=== PATIENT | male | born 1970 | race Caucasian/White ===

== ENCOUNTER 2019-05-26 02:43 | Emergency (ER) | payer OTHER ==
[2019-05-26] MEDS ORDERED: Labetalol 100 MG/20 ML MDV IVPUSH ONE (03:17)
--- NOTE | 2019-05-26 03:17 | EDM.PDOC ---
ED HPI GENERAL MEDICAL PROBLEM - General Chief Complaint: Neurological Problem Stated Complaint: [facility] Time Seen by Provider: 05/26/19 02:55 Source of Information: Reports: Patient, EMS History Limitations: Reports: No Limitations - History of Present Illness INITIAL COMMENTS - FREE TEXT/NARRATIVE: This is a 48-year-old male. He went to sleep at 8:30 PM this evening and apparently was normal as far as function of his extremities. He says he awoke around 2:30 or so and when he tried to get up to go to the bathroom his left leg was numb. He states he was not able to walk well because his left leg would not work he was also experiencing some sharp pain in his left hip. Got dizzy and then he apparently passed out. Apparently he awoke and called his son 's name and when the son came out to the hallway found him laying on his right side on the floor. The son attempted to get him up and when he stood up he vomited x2 and then apparently he passed out again. He was breathing the entire time he was passed out. The ambulance was called by his son. When the ambulance did arrive he was alert and oriented x3. He did have some left leg weakness but he denies any other acute symptoms. Supposedly 10 years ago he had a history of a syncopal episode and was told he had a stroke then but he does not remember any of the details and had no residual afterwards. Does have a history of high blood pressure and he takes lisinopril. The family's story and his story coincide as to the events. But he is a very poor historian. Treatments INSURANCE SPECIAL AGENT: Reports: IV/IO - Related Data Allergies Allergy/AdvReac Type Severity Reaction Status Date / Time bee venom protein (honey bee) Allergy Swelling Verified 05/26/19 02:54 Home Meds: Home Meds Lisinopril [Zestril] 10 mg PO DAILY 05/26/19 [History] Multivitamin [Daily Multiple Vitamin] 1 each PO DAILY 05/26/19 [History] Past Medical History HEENT History: Reports: None Cardiovascular History: Reports: Hypertension Respiratory History: Reports: None Gastrointestinal History: Reports: None Genitourinary History: Reports: None Musculoskeletal History: Reports: None Neurological History: Reports: CVA Psychiatric History: Reports: None Endocrine/Metabolic History: Reports: None Hematologic History: Reports: None Immunologic History: Reports: None Oncologic (Cancer) History: Reports: None Dermatologic History: Reports: None - Infectious Disease History Infectious Disease History: Reports: None Social & Family History - Tobacco Use Smoking Status *Q: Current Every Day Smoker Years of Tobacco use: 25 Packs/Tins Daily: 0.7 - Caffeine Use Caffeine Use: Reports: Coffee - Recreational Drug Use Recreational Drug Use: No ED ROS GENERAL - Review of Systems Review Of Systems: See Below Constitutional: Denies: Fever, Chills HEENT: Reports: No Symptoms Respiratory: Denies: Shortness of Breath, Cough Cardiovascular: Denies: Chest Pain Endocrine: Reports: No Symptoms GI/Abdominal: Reports: Nausea, Vomiting. Denies: Abdominal Pain, Diarrhea : Reports: No Symptoms Musculoskeletal: Reports: Leg Pain Skin: Reports: No Symptoms Neurological: Reports: Numbness, Syncope, Tingling, Weakness. Denies: Headache , Trouble Speaking Psychiatric: Reports: No Symptoms Hematologic/Lymphatic: Reports: No Symptoms ED EXAM, NEURO - Physical Exam Exam: See Below Exam Limited By: No Limitations General Appearance: Alert, WD/WN, No Apparent Distress Eye Exam: Bilateral Eye: Normal Inspection Ears: Normal External Exam, Normal Canal, Normal TMs Nose: Normal Inspection Throat/Mouth: Normal Inspection, Normal Lips, Normal Voice, No Airway Compromise Head Exam: Atraumatic, Normocephalic Neck: Supple Respiratory/Chest: No Respiratory Distress, Lungs Clear, Normal Breath Sounds Cardiovascular: Regular Rate, Rhythm, No Murmur GI/Abdominal: Soft, Non-Tender Neurological: Alert, Normal Mood/Affect, CN II-XII Intact, Oriented x 3, Other ( The patient is not able to lift his left leg off the bed or minimally so, he complains of a numb patch on the medial side of his entire calf but he can feel on the lateral side on his dorsal foot and plantar surface. He says from the knee up he has feeling as well. He does complain of pain in his left hip and left lower back area. He seems to be able to move his right lower extremity with no difficulty in his upper extremities with no difficulty with good leak detector strength. He has no facial drooping and he speaks with no difficulty. His NIH score was 5 related to his left lower extremity) Back Exam: Normal Inspection Extremities: Other (As above, the patient has a negative Babinski. Evaluation of the left lower extremity again reveals some soreness and pain in the left hip area but there is no bruising, from the knee up he has sensation around the leg, from the knee down he has a numb spot on the medial side of the calf but he can feel on the lateral side of the calf he can feel on the dorsal foot and the plantar surface of the foot, he is not able to raise that leg more than about an inch off the bed.) Psychiatric: Normal Affect, Normal Mood Skin Exam: Warm, Dry Course - Vital Signs Last Recorded V/S: Last Vital Signs Temp 98.7 F 05/26/19 02:48 Pulse 79 05/26/19 02:48 Resp 14 05/26/19 02:48 BP 177/100 H 05/26/19 02:48 Pulse Ox 96 05/26/19 02:48 - Orders/Labs/Meds Orders: Active Orders 24 hr Category Date Time Status EKG Documentation Completion [RC] STAT Care 05/26/19 03:12 Active Head wo Cont [CT] Stat Exams 05/26/19 02:55 Taken Labs: Laboratory Tests 05/26/19 05/26/19 05/26/19 Range/Units 02:56 02:56 02:56 WBC 7.94 (4.23-9.07) K/mm3 RBC 4.67 (4.63-6.08) M/mm3 Hgb 14.5 (13.7-17.5) gm/dl Hct 42.0 (40.1-51.0) % MCV 89.9 (79.0-92.2) fl MCH 31.0 (25.7-32.2) pg MCHC 34.5 (32.2-35.5) g/dl RDW Std Deviation 42.2 (35.1-43.9) fL Plt Count 245 (163-337) K/mm3 MPV 9.9 (9.4-12.3) fl Neut % (Auto) 55.0 (34.0-67.9) % Lymph % (Auto) 27.2 (21.8-53.1) % [place] % (Auto) 11.1 (5.3-12.2) % Eos % (Auto) 6.3 (0.8-7.0) Baso % (Auto) 0.1 (0.1-1.2) % Neut # (Auto) 4.37 (1.78-5.38) K/mm3 Lymph # (Auto) 2.16 (1.32-3.57) K/mm3 [place] # (Auto) 0.88 H (0.30-0.82) K/mm3 Eos # (Auto) 0.50 (0.04-0.54) K/mm3 Baso # (Auto) 0.01 (0.01-0.08) K/mm3 PT 10.9 (9.7-12.0) SECONDS INR 1.00 Sodium 142 (136-145) mEq/L Potassium 4.4 (3.5-5.1) mEq/L Chloride 107 (98-107) mEq/L Carbon Dioxide 30 (21-32) mEq/L Anion Gap 9.4 (5-15) BUN 19 H (7-18) mg/dL Creatinine 1.0 (0.7-1.3) mg/dL Est Cr Clr Drug Dosing 87.71 mL/min Estimated GFR (MDRD) > 60 (>60) mL/min BUN/Creatinine Ratio 19.0 H (14-18) Glucose 102 (74-106) mg/dL Calcium 8.6 (8.5-10.1) mg/dL Total Bilirubin 0.6 (0.2-1.0) mg/dL AST 16 (15-37) U/L ALT 27 (16-63) U/L Alkaline Phosphatase 74 (46-116) U/L Troponin I < 0.017 (0.00-0.056) ng/mL Total Protein 6.7 (6.4-8.2) g/dl Albumin 3.6 (3.4-5.0) g/dl Globulin 3.1 gm/dL Albumin/Globulin Ratio 1.2 (1-2) Meds: Medications Discontinued Medications Generic Name Dose Route Start Last Admin Trade Name Freq PRN Reason Stop Dose Admin Aspirin 324 mg 05/26/19 03:44 05/26/19 03:49 Aspirin PO 05/26/19 03:45 324 mg ONETIME ONE Administration Sodium Chloride 1,000 mls @ 100 mls/hr 05/26/19 04:15 05/26/19 04:10 Normal Saline IV 100 mls/hr ASDIRECTED ROMMEL Administration Labetalol HCl 20 mg 05/26/19 03:17 05/26/19 03:22 Normodyne IVPUSH 05/26/19 03:18 20 mg ONETIME ONE Administration Protocol - Radiology Interpretation Free Text/Narrative:: CT scan of the head does not show any acute intracranial abnormalities. - Re-Assessments/Exams Free Text/Narrative Re-Assessment/Exam: 05/26/19 03:52 Spoke to the family and the patient regarding his left leg symptoms and he is going to be going to [facility] in [facility]. Dr. Bowie the ER doctor excepts him in transport and Dr. Alvares is aware of his being transferred to [place]. 05/26/19 03:56 The scan of the head was pushed down to [facility] in [facility] 05/26/19 04:04 Chicho's note that when the patient came into the ER his blood pressure was 170/ 110 I did give him 20 of labetalol and brought it down to 143/97 still remains in that general area now. 05/26/19 04:22 The ambulance arrived and packaged up the patient. He was in no distress. He states he wants to go home but he is actually going down to [place] for further evaluation and work-up. Departure - Departure Time of Disposition: 03:53 Disposition: DC/Tfer to Acute Hospital 02 Condition: Poor Clinical Impression: Left leg weakness, Left leg numbness Cerebrovascular accident Qualifiers: CVA mechanism: unspecified Qualified Code(s): I63.9 - Cerebral infarction, unspecified Hypertension Qualifiers: Hypertension type: essential hypertension Qualified Code(s): I10 - Essential ( primary) hypertension - Discharge Information Referrals: PCP,None [Primary Care Provider] - Sepsis Event Note - Evaluation Sepsis Screening Result: No Definite Risk - Focused Exam Vital Signs: Vital Signs Temp Pulse Resp BP Pulse Ox 05/26/19 02:48 98.7 F 79 14 177/100 H 96 Date Exam was Performed: 05/26/19 Time Exam was Performed: 04:37 ED Communication - ED Communication Date/Time Date: 05/26/19 Time Called: 03:55 - Discussed Case With (1) Discussed Case With (1): Other (Neurologist) Person/s Notified (1): Jones Alvares (He will consult regarding the patient) Person/s Notified (2): Dr. Bowie (He accepts the patient in transport for further evaluation and treatment) - My Orders Last 24 Hours: My Active Orders 05/26/19 03:12 EKG Documentation Completion [RC] STAT - Assessment/Plan Last 24 Hours: My Active Orders 05/26/19 03:12 EKG Documentation Completion [RC] STAT
[2019-05-26] MEDS ORDERED: Aspirin 81 MG Tab.Chew PO ONE (03:44)
[2019-05-26] MEDS ORDERED: Sodium Chloride 0.9% 1,000 ML IV SCH (04:15)
--- NOTE | 2019-05-28 08:31 | CT ---
Head CT Technique: Multiple axial sections through the brain were obtained. Intravenous contrast was not utilized. Comparison: No prior head CT study. Findings: Ventricles along with basal cisterns and sulci over the convexities are within normal limits for the patient's age. No abnormal parenchymal densities are seen. No evidence of intracranial hemorrhage. No midline shift or mass effect is seen. Visualized mastoid sinuses are clear. There is moderate mucosal thickening seen within the ethmoid sinuses with mild mucosal thickening also seen within the frontal sinuses. No acute calvarial abnormality is identified. Impression: 1. No acute intracranial abnormality is identified. 2. Sinus findings which most likely represent chronic sinusitis. Diagnostic code #2 I agree with preliminary report issued by [facility] ([facility] preliminary report dictated on 05/26/19, 4:06 AM Central Time) [facility]
== END 2019-05-26 04:20 ==
LOC: JD.ED 02:43
DX: I63.9 Cerebral infarction, unspecified (principal); G83.14 Monoplegia of lower limb affecting left nondominant side; R29.705 NIHSS score 5; R20.0 Anesthesia of skin; I10 Essential (primary) hypertension; Z91.030 Bee allergy status; Z79.899 Other long term (current) drug therapy
CPT/HCPCS: 36415; 70450; 80053; 84484; 85025; 85610; 93005; 96374; 99285; A9270; J3490; J7030

== ENCOUNTER 2021-01-23 00:34 | Emergency (ER) | payer OTHER ==
--- NOTE | 2021-01-23 02:38 | EDM.PDOC ---
ED HPI GENERAL MEDICAL PROBLEM - General Chief Complaint: General Stated Complaint: Chest pain Time Seen by Provider: 01/23/21 01:17 Source of Information: Reports: Patient History Limitations: Reports: No Limitations - History of Present Illness INITIAL COMMENTS - FREE TEXT/NARRATIVE: The patient presents with chest pain. He was diagnosed with COVID 19 a couple days ago. He has a slight cough but no shortness of breath. He has pain to his right upper chest. He has no fever, chills, or swelling in his feet. He has a history of hypertension but no history of heart disease. He does smoke. Onset: Gradual Duration: Day(s): Location: Reports: Chest Quality: Reports: Sharp Severity: Mild Improves with: Reports: None Worsens with: Reports: None Associated Symptoms: Reports: Chest Pain, Cough. Denies: Fever/Chills, Headaches, Nausea/Vomiting, Shortness of Breath - Related Data Allergies Allergy/AdvReac Type Severity Reaction Status Date / Time bee venom protein (honey bee) Allergy Swelling Verified 01/23/21 01:17 Home Meds: Home Meds Multivitamin [Daily Multiple Vitamin] 1 each PO DAILY 05/26/19 [History] lisinopriL [Zestril] 10 mg PO DAILY 05/26/19 [History] Past Medical History HEENT History: Reports: None Cardiovascular History: Reports: Hypertension Respiratory History: Reports: None Gastrointestinal History: Reports: None Genitourinary History: Reports: None Musculoskeletal History: Reports: None Neurological History: Reports: CVA, Other (See Below) Other Neuro History: stroke in May Psychiatric History: Reports: None Endocrine/Metabolic History: Reports: None Hematologic History: Reports: None Immunologic History: Reports: None Oncologic (Cancer) History: Reports: None Dermatologic History: Reports: None - Infectious Disease History Infectious Disease History: Reports: None Social & Family History - Tobacco Use Tobacco Use Status *Q: Current Every Day Tobacco User Years of Tobacco use: 25 Packs/Tins Daily: 0.5 - Caffeine Use Caffeine Use: Reports: Coffee - Recreational Drug Use Recreational Drug Use: No ED ROS GENERAL - Review of Systems Review Of Systems: See Below Constitutional: Reports: No Symptoms HEENT: Reports: No Symptoms Respiratory: Reports: Cough. Denies: Shortness of Breath Cardiovascular: Reports: Chest Pain Endocrine: Reports: No Symptoms GI/Abdominal: Reports: No Symptoms ED EXAM, GENERAL - Physical Exam Exam: See Below Exam Limited By: No Limitations General Appearance: Alert, No Apparent Distress Ears: Normal External Exam Nose: Normal Inspection Head: Atraumatic, Normocephalic Neck: Normal Inspection Respiratory/Chest: No Respiratory Distress, Lungs Clear, Normal Breath Sounds Cardiovascular: Regular Rate, Rhythm, No Edema, No Murmur GI/Abdominal: Soft, Non-Tender, No Organomegaly, No Mass Back Exam: Normal Inspection Extremities: Normal Inspection #1 Interpretation EKG Date: 01/23/21 Time: 01:51 Rhythm: NSR Rate (Beats/Min): 85 [place]: Normal P-Wave: Present QRS: Normal ST-T: Normal QT: Normal Course - Vital Signs Last Recorded V/S: Last Vital Signs Temp 97.8 F 01/23/21 01:09 Pulse 84 01/23/21 01:09 Resp 20 01/23/21 01:09 BP 145/87 H 01/23/21 01:09 Pulse Ox 95 01/23/21 01:09 - Orders/Labs/Meds Orders: Active Orders 24 hr Category Date Time Status Cardiac Monitoring [RC] . DIRECTED Care 01/23/21 01:25 Active Chest 1V Frontal [CR] Stat Exams 01/23/21 01:26 Taken Labs: Laboratory Tests 01/23/21 01/23/21 01/23/21 Range/Units 01:40 01:40 01:40 WBC 6.45 (4.23-9.07) K/mm3 RBC 4.67 (4.63-6.08) M/mm3 Hgb 14.5 (13.7-17.5) gm/dl Hct 42.6 (40.1-51.0) % MCV 91.2 (79.0-92.2) fl MCH 31.0 (25.7-32.2) pg MCHC 34.0 (32.2-35.5) g/dl RDW Std Deviation 44.1 H (35.1-43.9) fL Plt Count 182 (163-337) K/mm3 MPV 10.7 (9.4-12.3) fl Neut % (Auto) 58.3 (34.0-67.9) % Lymph % (Auto) 21.6 L (21.8-53.1) % [place] % (Auto) 14.1 H (5.3-12.2) % Eos % (Auto) 5.4 (0.8-7.0) Baso % (Auto) 0.3 (0.1-1.2) % Neut # (Auto) 3.76 (1.78-5.38) K/mm3 Lymph # (Auto) 1.39 (1.32-3.57) K/mm3 [place] # (Auto) 0.91 H (0.30-0.82) K/mm3 Eos # (Auto) 0.35 (0.04-0.54) K/mm3 Baso # (Auto) 0.02 (0.01-0.08) K/mm3 D-Dimer, Quantitative 0.39 (0.19-0.50) mg/L Sodium 138 (136-145) mEq/L Potassium 3.3 L (3.5-5.1) mEq/L Chloride 103 (98-107) mEq/L Carbon Dioxide 27 (21-32) mEq/L Anion Gap 11.3 (5-15) BUN 18 (7-18) mg/dL Creatinine 0.9 (0.7-1.3) mg/dL Est Cr Clr Drug Dosing 94.07 mL/min Estimated GFR (MDRD) > 60 (>60) mL/min BUN/Creatinine Ratio 20.0 H (14-18) Glucose 141 H (70-99) mg/dL Calcium 8.4 L (8.5-10.1) mg/dL Total Bilirubin 0.2 (0.2-1.0) mg/dL AST 16 (15-37) U/L ALT 24 (16-63) U/L Alkaline Phosphatase 90 (46-116) U/L Troponin I < 0.017 (0.00-0.056) ng/mL C-Reactive Protein 0.3 (<1.0) mg/dL Total Protein 6.6 (6.4-8.2) g/dl Albumin 3.3 L (3.4-5.0) g/dl Globulin 3.3 gm/dL Albumin/Globulin Ratio 1.0 (1-2) - Re-Assessments/Exams Free Text/Narrative Re-Assessment/Exam: 01/23/21 02:34 I ordered an EKG, CXR and labs. His EKG shows a NSR with no acute changes. His CXR looks good. His CBC looks good. His D-dimer was negative. His K was a little low at 3.3. His troponin is negative. He is getting the monoclonal antibodies tomorrow. I will discharge him home. Departure - Departure Time of Disposition: 02:40 Disposition: Home, Self-Care 01 Condition: Good Clinical Impression: Atypical chest pain, COVID-19 - Discharge Information *PRESCRIPTION DRUG MONITORING PROGRAM REVIEWED*: Not Applicable *COPY OF PRESCRIPTION DRUG MONITORING REPORT IN PATIENT CODY: Not Applicable Referrals: Prosper Alex MD [Primary Care Provider] - 1 Week Care Plan Goals: Drink plenty of fluids. Take tylenol or motrin as needed for pain. Keep your appointment at 11 for the monoclonal antibodies. Pleas return if you are worse. Sepsis Event Note (ED) - Evaluation Sepsis Screening Result: No Definite Risk - Focused Exam Vital Signs: Vital Signs Temp Pulse Resp BP Pulse Ox 01/23/21 01:09 97.8 F 84 20 145/87 H 95 - My Orders Last 24 Hours: My Active Orders 01/23/21 01:25 Cardiac Monitoring [RC] . DIRECTED 01/23/21 01:26 Chest 1V Frontal [CR] Stat - Assessment/Plan Last 24 Hours: My Active Orders 01/23/21 01:25 Cardiac Monitoring [RC] . DIRECTED 01/23/21 01:26 Chest 1V Frontal [CR] Stat
[2021-01-23] MEDS ORDERED: Acetaminophen 325 MG Tab PO ONE (02:57)
--- NOTE | 2021-01-23 05:47 | CR ---
Chest: Frontal view of the chest was obtained. Comparison: No prior chest x-ray is available. Heart size and mediastinum are within normal limits. Lungs are clear with no acute parenchymal change. Slight scoliosis is noted within the spine with mild scattered end plate spurring. Impression: 1. Nothing acute is seen on frontal chest x-ray. Diagnostic code #2
== END 2021-01-23 03:08 | disposition home or self-care (01) ==
LOC: JD.ED 00:34
DX: U07.1 COVID-19 (principal); R07.89 Other chest pain; I10 Essential (primary) hypertension; Z91.030 Bee allergy status; Z72.0 Tobacco use; Z79.899 Other long term (current) drug therapy
CPT/HCPCS: 36415; 71045; 71045-26; 80053; 84484; 85025; 85379; 86140; 93005; 99285-25